=== PATIENT | male | born 1980 | race African-American/Black ===

== ENCOUNTER 2021-03-26 00:42 | Emergency (ER) | payer OTHER ==
[~2021-03-26] VITALS: Ht 175.3 cm; Wt 74.8 kg
[2021-03-26 00:43] VITALS: BP 147/97
== END 2021-03-26 01:28 | disposition home or self-care (01) ==
LOC: ER 00:42
DX: M25.561 Pain in right knee (principal); Z76.5 Malingerer [conscious simulation]; G40.909 Epilepsy, unspecified, not intractable, without status epilepticus; R10.13 Epigastric pain